=== PATIENT | male | born 1995 | race Caucasian/White ===

== ENCOUNTER 2025-06-08 15:54 | Emergency (ER) | payer OTHER ==
[~2025-06-08] VITALS: Ht 162.6 cm; Wt 58.3 kg
[2025-06-08 16:27] LABS: BASOPHILS 0.5 % (0.2-1.2); EOSINOPHILS 2.1 % (0.8-7.0); LYMPHOCYTES 17.7 % (21.8-53.1); MCH 30.0 PG (25.7-32.2); MCHC 35.6 g/dL (32.3-36.5); MCV 84.1 fL (79.0-92.2); MONOCYTES 8.8 % (5.3-12.2); NEUTROPHILS 70.6 % (34.0-67.9); RBC 5.17 M/uL (4.63-6.08)
[2025-06-08 16:45] LABS: ALT (SGPT) 23 U/L (14-59); AST (SGOT) 13 U/L (15-37); GLOMERULAR FILTRATION RATE,EST 120 mL/min (>60); PROTEIN, TOTAL 6.6 g/dL (6.4-8.2); UREA NITROGEN 12 mg/dL (7-18)
[2025-06-08 17:56] VITALS: BP 111/75
--- NOTE | 2025-06-09 15:58 | EKG ---
[facility] [address] [facility] [place] [address] Signed Normal sinus rhythm Rightward axis Borderline ECG No previous ECGs available Confirmed by Karolina Desir MD ([id number]) on 06/09/2025 3:58:26 PM Electronically Signed By: KAROLINA DESIR MD 06/09/25 1558 PATIENT NAME: DAYRON RICE Electrocardiogram DATE OF : [birth year] PHYSICIAN: KAROLINA DESIR MD REPORT #: [id number] REPORT IS CONFIDENTIAL AND NOT TO BE RELEASED WITHOUT AUTHORIZATION
== END 2025-06-08 18:03 | disposition home or self-care (01) ==
LOC: ED 15:54
PROVIDERS: Emergency Medicine
DX: R55 Syncope and collapse (principal)
CPT/HCPCS: 36415; 80053; 83735; 84484; 85025; 93005; 93010; 99284